=== PATIENT | female | born 2000 | race African-American/Black ===

== ENCOUNTER 2025-04-24 18:43 | Emergency (ER) | payer OTHER ==
[~2025-04-24] VITALS: Ht 152.4 cm; Wt 50.9 kg
[2025-04-24] MEDS: ONDANSETRON 4MG ORAL DISINTEGRATING TAB PO ONE (21:55)
[2025-04-24] MEDS: ACETAMINOPHEN 325 MG TAB PO ONE (21:55)
[2025-04-24] MEDS: NS (Normal Saline) 0.9% 1,000 ML IV ONE (22:10)
[2025-04-24] MEDS: KETOROLAC 30 MG/ML 1 ML VIAL IV ONE (22:23)
[2025-04-24] MEDS: ONDANSETRON 4MG/2ML VIAL IV ONE (22:24)
[2025-04-24] MEDS ORDERED: ONDA-282 PO (23:51)
[2025-04-25 01:01] VITALS: BP 118/67; TEMP 99.2; O2SAT 100
== END 2025-04-25 01:00 | disposition home or self-care (01) ==
LOC: M ED 18:43
DX: B34.8 Other viral infections of unspecified site (principal); Z79.899 Other long term (current) drug therapy
CPT/HCPCS: 87486; 87581; 87633; 87798; 96361; 96374; 96375; 99284; J1885; J2405; J2765